=== PATIENT | male | born 1980 | race Caucasian/White ===

== ENCOUNTER 2020-05-31 21:00 | Emergency (ER) | payer OTHER ==
[~2020-05-31 21:00] MED LIST: FLONASE ALLER15.8 ML
[2020-05-31 22:31] LABS: BASOPHIL 0.1 % (0-2); EOSINOPHIL 0 % (0-5); HCT 45.1 % (42.0-52.0); HGB 14.9 g/dl (13.2-18.0); LYMPHOCYTE 8.7 % (15-48); MCH 30.1 pg (25.0-31.0); MCV 91.1 fL (78.0-100.0); MONOCYTE 3.2 % (0-12); MPV 11.6 fL (6.0-9.5); NEUTROPHIL 87.6 % (41-80); NRBC 0; PLT 206 K/uL (150-400); RBC 4.95 M/uL (4.70-6.00); RDW 12.6 % (11.5-14.0); WBC 12.3 K/uL (4.0-10.5)
[2020-05-31 22:50] LABS: ALBUMIN 4.1 g/dL (3.4-5.0); BILIRUBIN - TOTAL 0.7 mg/dL (0.2-1.0); CREATININE 0.6 mg/dL (0.67-1.17); GLOBULIN (CALCULATION) 3.6 g/dL; POTASSIUM 4.2 mmol/L (3.5-5.1); TOTAL PROTEIN 7.7 g/dL (6.4-8.2)
[2020-05-31 22:55] LABS: LACTIC ACID 2.6 mmol/L (0.4-1.9)
[2020-06-01 01:00] LABS: BILIRUBIN NEGATIVE (NEGATIVE); BLOOD NEGATIVE Ery/uL (NEGATIVE); CLARITY CLEAR (CLEAR); COLOR YELLOW (YELLOW); GLUCOSE (U) NORMAL (NORMAL); LEUKOCYTES NEGATIVE Leu/uL (NEGATIVE); NITRITE NEGATIVE (NEGATIVE); PROTEIN NEGATIVE (NEGATIVE); UROBILINOGEN 0.2 mg/dL (0.2-1.0); pH 6.5 (5.0-9.0)
[2020-06-01] MEDS ORDERED: ONDANSETRON ODT4 MG SL (03:25)
== END 2020-06-01 05:22 | disposition home or self-care (01) ==
LOC: FER 21:00
PROVIDERS: Emergency Medicine Emergency Medical Services
DX: R10.84 Generalized abdominal pain (principal); R11.2 Nausea with vomiting, unspecified; J98.11 Atelectasis; Z90.49 Acquired absence of other specified parts of digestive tract; Z98.890 Other specified postprocedural states; Z88.6 Allergy status to analgesic agent
CPT/HCPCS: 36415; 80053; 81003; 83605; 84145; 85025; J1170; J2270; J2405; J7030; Q9967

== ENCOUNTER 2020-06-22 20:36 | Emergency (ER) | payer OTHER ==
[~2020-06-22 20:36] MED LIST changes: +ONDANSETRON ODT4 MG SL
[2020-06-22 21:15] LABS: BASOPHIL 0.4 % (0-2); EOSINOPHIL 2.2 % (0-5); HCT 40.2 % (42.0-52.0); HGB 13.8 g/dl (13.2-18.0); LYMPHOCYTE 40.5 % (15-48); MCH 30.3 pg (25.0-31.0); MCHC 34.3 g/dL (32.0-36.0); MCV 88.4 fL (78.0-100.0); MPV 11.5 fL (6.0-9.5); NEUTROPHIL 50.8 % (41-80); NRBC 0; PLT 267 K/uL (150-400); RBC 4.55 M/uL (4.70-6.00); WBC 6.8 K/uL (4.0-10.5)
[2020-06-22 21:29] LABS: ALBUMIN 4.2 g/dL (3.4-5.0); BILIRUBIN - TOTAL 0.4 mg/dL (0.2-1.0); BUN/CREAT RATIO (CALC) 14.5 RATIO; CREATININE 0.69 mg/dL (0.67-1.17); GLOBULIN (CALCULATION) 3.2 g/dL; POTASSIUM 3.7 mmol/L (3.5-5.1); TOTAL PROTEIN 7.4 g/dL (6.4-8.2)
[2020-06-22 21:36] LABS: PRO-BNP 22 pg/mL (<125)
[2020-06-22 21:49] LABS: BILIRUBIN NEGATIVE (NEGATIVE); BLOOD TRACE-INTACT Ery/uL (NEGATIVE); CLARITY CLEAR (CLEAR); COLOR YELLOW (YELLOW); GLUCOSE (U) NORMAL (NORMAL); LEUKOCYTES NEGATIVE Leu/uL (NEGATIVE); NITRITE NEGATIVE (NEGATIVE); PROTEIN NEGATIVE (NEGATIVE); UROBILINOGEN 0.2 mg/dL (0.2-1.0)
[2020-06-22 21:53] LABS: SQUAMOUS EPITHELIAL CELLS RARE; URINARY RBC RARE
== END 2020-06-22 23:30 | disposition home or self-care (01) ==
LOC: FER 20:36
PROVIDERS: Student in an Organized Health Care Education/Training Program
DX: I10 Essential (primary) hypertension (principal); F41.9 Anxiety disorder, unspecified; J45.909 Unspecified asthma, uncomplicated; Z88.6 Allergy status to analgesic agent; Z79.899 Other long term (current) drug therapy
CPT/HCPCS: 36415; 71045; 80053; 81001; 83880; 84484; 85025; 93005; J0780; J1200

== ENCOUNTER 2021-09-06 15:54 | Emergency (ER) | payer OTHER ==
[2021-09-06 16:42] LABS: BILIRUBIN NEGATIVE (NEGATIVE); BLOOD TRACE-INTACT Ery/uL (NEGATIVE); CLARITY CLEAR (CLEAR); COLOR YELLOW (YELLOW); GLUCOSE (U) NORMAL (NORMAL); LEUKOCYTES NEGATIVE Leu/uL (NEGATIVE); NITRITE NEGATIVE (NEGATIVE); PROTEIN NEGATIVE (NEGATIVE); SPECIFIC GRAVITY 1.025 (1.001-1.030); UROBILINOGEN 0.2 mg/dL (0.2-1.0)
[2021-09-06 16:57] LABS: MUCOUS TRACE; URINARY RBC RARE
[2021-09-06 17:22] LABS: BASOPHIL 0.5 % (0-2); EOSINOPHIL 1.4 % (0-5); HCT 37.6 % (42.0-52.0); HGB 12.9 g/dl (13.2-18.0); LYMPHOCYTE 42.6 % (15-48); MCH 30.5 pg (25.0-31.0); MCHC 34.3 g/dL (32.0-36.0); MCV 88.9 fL (78.0-100.0); MONOCYTE 5.9 % (0-12); MPV 12.2 fL (6.0-9.5); NEUTROPHIL 49.4 % (41-80); NRBC 0; PLT 188 K/uL (150-400); RBC 4.23 M/uL (4.70-6.00); RDW 12.4 % (11.5-14.0); WBC 6.3 K/uL (4.0-10.5)
[2021-09-06 17:42] LABS: BILIRUBIN - TOTAL 0.5 mg/dL (0.2-1.0); BUN/CREAT RATIO (CALC) 19.5 RATIO; CREATININE 0.77 mg/dL (0.67-1.17); POTASSIUM 3.5 mmol/L (3.5-5.1)
== END 2021-09-06 19:22 | disposition home or self-care (01) ==
LOC: FER 15:54
PROVIDERS: Physician Assistant
DX: R10.9 Unspecified abdominal pain (principal); I10 Essential (primary) hypertension; Z88.6 Allergy status to analgesic agent; Z79.899 Other long term (current) drug therapy
CPT/HCPCS: 36415; 80053; 81001; 85025

== ENCOUNTER 2021-10-28 12:01 | Emergency (ER) | payer OTHER ==
[2021-10-28] MEDS ORDERED: LOSARTAN POTASS50 MG PO (13:13)
[2021-10-28 13:49] LABS: BASOPHIL 0.4 % (0-2); EOSINOPHIL 1.8 % (0-5); HCT 44.9 % (42.0-52.0); HGB 15.1 g/dl (13.2-18.0); LYMPHOCYTE 40.5 % (15-48); MCH 30.2 pg (25.0-31.0); MCHC 33.6 g/dL (32.0-36.0); MCV 89.8 fL (78.0-100.0); MONOCYTE 5.8 % (0-12); MPV 11.2 fL (6.0-9.5); NEUTROPHIL 51.4 % (41-80); NRBC 0; PLT 235 K/uL (150-400); RDW 12.5 % (11.5-14.0); WBC 6.7 K/uL (4.0-10.5)
[2021-10-28 14:10] LABS: ALBUMIN 4.3 g/dL (3.4-5.0); BILIRUBIN - TOTAL 0.5 mg/dL (0.2-1.0); BUN/CREAT RATIO (CALC) 16.7 RATIO; CREATININE 0.72 mg/dL (0.67-1.17); GLOBULIN (CALCULATION) 3.2 g/dL; POTASSIUM 3.9 mmol/L (3.5-5.1); TOTAL PROTEIN 7.5 g/dL (6.4-8.2)
[2021-10-28 14:57] LABS: BILIRUBIN NEGATIVE (NEGATIVE); BLOOD NEGATIVE Ery/uL (NEGATIVE); CLARITY CLEAR (CLEAR); COLOR YELLOW (YELLOW); GLUCOSE (U) NORMAL (NORMAL); LEUKOCYTES NEGATIVE Leu/uL (NEGATIVE); NITRITE NEGATIVE (NEGATIVE); PROTEIN NEGATIVE (NEGATIVE); SPECIFIC GRAVITY <=1.005 (1.001-1.030); UROBILINOGEN 0.2 mg/dL (0.2-1.0)
== END 2021-10-28 16:47 | disposition home or self-care (01) ==
LOC: FER 12:01
PROVIDERS: Nurse Practitioner Family
DX: R51.9 Headache, unspecified (principal); I10 Essential (primary) hypertension; Z88.6 Allergy status to analgesic agent; Z79.899 Other long term (current) drug therapy
CPT/HCPCS: 36415; 70450; 72125; 80053; 81003; 84484; 85025; 93005; J7030